=== PATIENT | female | born 1995 | race African-American/Black ===

== ENCOUNTER 2017-01-14 21:58 | Emergency (ER) | payer OTHER, MEDICAID ==
[~2017-01-14] VITALS: Ht 162.6 cm; Wt 47.6 kg
[~2017-01-14 21:58] MED LIST: INSLANTI SC; INSUINJ37 SUBCUT; NOVALOG
[2017-01-14 22:55] LABS: Urine Bilirubin Negative (Negative); Urine Blood Negative /uL (Negative); Urine Color Yellow (Yellow); Urine Nitrite Negative (Negative); Urine RBC 1 /hpf (0 - 4); Urine Squamous Epithelial Cell FEW /hpf (<5); Urine Urobilinogen Normal (Negative); Urine pH 5.5 (5.0-8.0)
[2017-01-14 22:56] LABS: Urine Glucose 4+ mg/dL (Normal); Urine Ketone 1+ (Negative)
[2017-01-14 23:00] LABS: Basophils # (auto) 0 uL; Basophils % (auto) 0.3 % (0.0-2.0); DEFINITIVE VIEW TRANSMISSION; Eosinophils # (auto) 0 uL; Eosinophils % (auto) 0.1 % (0.0-7.0); Hematocrit 40.7 % (36.0-46.0); Hemoglobin 13.1 g/dL (12.2-16.2); Lymphocytes # (auto) 2.5 uL; Lymphocytes % (auto) 16.6 % (10.0-50.0); Mean Corpuscular Hemoglobin 26.8 pg (28.0-32.0); Mean Corpuscular Hgb Conc. 32.3 g/dL (32.0-36.0); Mean Corpuscular Volume 82.9 fL (80.0-100.0); Mean Platelet Volume 8.1 fL (7.4-10.4); Monocytes # (auto) 0.9 uL; Neutrophils # (auto) 11.6 uL; Platelet Count (auto) 339 10^3/uL (140-450); Red Cell Distribution Width 14.3 % (11.6-16.0); White Blood Cell 15.1 10^3/uL (4.4-10.8)
[2017-01-14 23:25] LABS: Albumin 3.7 g/dL (3.4-5.0); Anion Gap 14 (5-15); Aspartate Aminotransferase 12 U/L (15-37); BUN/Creatinine Ratio 8.4; Blood Urea Nitrogen 9 mg/dL (7-18); Calcium 8.3 mg/dL (8.5-10.1); Carbon Dioxide 23 mmol/L (21-32); Chloride 99 mmol/L (98-107); GFR African American 85 mL/min; GFR Non-African American 70 mL/min; Potassium 3.6 mmol/L (3.5-5.1); Salicylate < 1.7 mg/dL (2.8-20.0); Sodium 136 mmol/L (136-145)
[2017-01-14 23:27] LABS: Alkaline Phosphatase 133 U/L (45-117); Bilirubin, Total 0.4 mg/dL (0.2-1.0); Total Protein 8.1 g/dL (6.4-8.2)
[2017-01-14 23:32] LABS: Acetaminophen < 2.0 ug/mL (10-30)
[2017-01-14 23:34] LABS: Glucose 418 mg/dL (74-106)
[2017-01-15] MEDS ORDERED: InsuLIN REG 1unit/0.01ml Soln (100units/ml) SC ONE (01:15)
[2017-01-15 02:17] VITALS: BP 110/78
== END 2017-01-15 02:18 | disposition home or self-care (01) ==
LOC: ER 22:07
DX: F32.9 Major depressive disorder, single episode, unspecified (principal); E10.9 Type 1 diabetes mellitus without complications; F41.9 Anxiety disorder, unspecified
CPT/HCPCS: 36415; 80053; 80320; 80329; 81001; 81025; 82010; 82962; 85025; 96372; 99284; G0434; J1815

== ENCOUNTER 2018-10-19 20:57 | Inpatient (IN) | payer MEDICAID ==
[~2018-10-19] VITALS: Ht 160 cm; Wt 57.3 kg
[2018-10-19 21:57] LABS: Basophils # (auto) 0 uL; Eosinophils # (auto) 0 uL; Lymphocytes # (auto) 1.7 uL
[2018-10-19 21:58] LABS: Urine Bacteria NONE SEEN /hpf (None Seen); Urine Blood Negative /uL (Negative); Urine Specific Gravity 1.037 (1.001-1.035); Urine WBC 5 /hpf (0 - 5)
[2018-10-19 21:59] LABS: Basophils % (auto) 0.2 % (0.0-2.0); Hematocrit 40.8 % (36.0-46.0); Hemoglobin 13.2 g/dL (12.2-16.2); Mean Corpuscular Hemoglobin 26.5 pg (28.0-32.0); Mean Corpuscular Hgb Conc. 32.3 g/dL (32.0-36.0); Mean Corpuscular Volume 82.1 fL (80.0-100.0); Monocytes # (auto) 0.5 uL; Monocytes % (auto) 4.4 % (0.0-12.0); Neutrophils % (auto) 80.4 % (37.0-80.0); Platelet Count (auto) 290 10^3/uL (140-450); Red Blood Cells 4.97 10^6/uL (4.0-5.20); Red Cell Distribution Width 14.6 % (11.8-14.3); White Blood Cell 11.2 10^3/uL (4.4-10.8)
[2018-10-19 22:01] LABS: Alcohol, Urine < 3.0 mg/dL (0-5); Amphetamine Screen, Urine NEGATIVE (NEGATIVE); Barbiturate Scree,Urine NEGATIVE (NEGATIVE); Benzodiazephine Screen, Urine NEGATIVE (NEGATIVE); Cannabinoid Screen, Urine NEGATIVE (NEGATIVE); Cocaine Screen, Urine NEGATIVE (NEGATIVE); Opiate Scree,Urine NEGATIVE (NEGATIVE); Phencyclidine Screen, Urine NEGATIVE (NEGATIVE)
[2018-10-19 22:13] LABS: Urine Pregnacy Test Negative (Negative)
[2018-10-19 22:17] LABS: Albumin 3.9 g/dL (3.4-5.0); Anion Gap 7 (5-15); Blood Urea Nitrogen 6 mg/dL (7-18); Carbon Dioxide 23 mmol/L (21-32); Chloride 104 mmol/L (98-107); Glucose 287 mg/dL (74-106); Potassium 4.1 mmol/L (3.5-5.1); Sodium 134 mmol/L (136-145)
[2018-10-19 22:22] LABS: Alanine Aminotransferase 13 U/L (13-56); Alkaline Phosphatase 114 U/L (45-117); Aspartate Aminotransferase 11 U/L (15-37); Bilirubin, Total 0.5 mg/dL (0.2-1.0); GFR African American 107 mL/min; GFR Non-African American 89 mL/min; Total Protein 8.4 g/dL (6.4-8.2)
[2018-10-19] MEDS ORDERED: SODIUM CHLORIDE 0.9% 2,000 ML IV ONE (22:30)
[2018-10-19] MEDS ORDERED: InsuLIN REG 1unit/0.01ml Soln (100units/ml) IV ONE (22:45)
[2018-10-20] MEDS ORDERED: DEXTROSE 50% SYRINGE 50 ML IV ONE ×2 (00:12→01:35)
[2018-10-20] MEDS ORDERED: DEXTROSE (50%) 50ML SYRG IV ONE ×2 (00:30→02:15)
[2018-10-20] MEDS ORDERED: D5W/SOD CHL 0.45% 1,000 ML IV ONE (02:15)
[2018-10-20] MEDS: ACCU-CHEK COMFORT CURVE STRIP VI SCH ×8 (03:00→20:00)
[2018-10-20] MEDS ORDERED: ACETAMINOPHEN 500 MG TAB PO PRN (03:00)
[2018-10-20] MEDS ORDERED: DEXTROSE (50%) 50ML SYRG IV PRN (03:00)
[2018-10-20] MEDS ORDERED: ONDANSETRON HCL 4 MG/2 ML VIAL IV PRN (03:00)
[2018-10-20 05:00] VITALS: BP 108/64
[2018-10-20] MEDS ORDERED: INFLUENZA QUAD 2018-2019 0.5 ML SYRG IM ONE (07:30)
[2018-10-20 08:57] LABS: Basophils # (auto) 0 uL; Eosinophils # (auto) 0 uL; Lymphocytes # (auto) 3.5 uL; Lymphocytes % (auto) 40.4 % (10.0-50.0); Monocytes # (auto) 0.6 uL; Neutrophils # (auto) 4.5 uL; Nucleated Red Blood Cells % 0.1 %; White Blood Cell 8.7 10^3/uL (4.4-10.8)
[2018-10-20 09:00] LABS: Basophils % (auto) 0.3 % (0.0-2.0); Eosinophils % (auto) 0.2 % (0.0-7.0); Hematocrit 36.2 % (36.0-46.0); Hemoglobin 11.7 g/dL (12.2-16.2); Mean Corpuscular Hemoglobin 26.7 pg (28.0-32.0); Mean Corpuscular Hgb Conc. 32.3 g/dL (32.0-36.0); Mean Corpuscular Volume 82.7 fL (80.0-100.0); Monocytes % (auto) 7.1 % (0.0-12.0); Platelet Count (auto) 251 10^3/uL (140-450); Red Blood Cells 4.37 10^6/uL (4.0-5.20); Red Cell Distribution Width 14.6 % (11.8-14.3)
[2018-10-20 09:04] LABS: BUN/Creatinine Ratio 5.2; Calcium 7.9 mg/dL (8.5-10.1); Potassium 3.3 mmol/L (3.5-5.1)
[2018-10-20 09:06] VITALS: BP 113/56
[2018-10-20 13:00] VITALS: BP 112/65
[2018-10-20] MEDS ORDERED: POTASSIUM CHL 20 Meq TABLET PO ONE (13:00)
[2018-10-20 17:00] VITALS: BP 114/72
[2018-10-20 22:00] VITALS: BP 108/65
[2018-10-21] MEDS ORDERED: DEXTROSE (50%) 50ML SYRG IV PRN (00:45)
[2018-10-21] MEDS: InsuLIN REG 1unit/0.01ml Soln (100units/ml) SC SCH ×4 (01:30→17:00)
[2018-10-21] MEDS: ACCU-CHEK COMFORT CURVE STRIP VI SCH ×6 (01:30→17:00)
[2018-10-21 05:00] VITALS: BP 88/57
[2018-10-21] MEDS ORDERED: InsuLIN REG 1unit/0.01ml Soln (100units/ml) SC SCH (07:00)
[2018-10-21 09:00] VITALS: BP_SYST 112; BP_SYST 114; BP_DIAS 59; BP_DIAS 60
[2018-10-21] MEDS ORDERED: INSULIN LANTUS (GLARGINE) 1 /0.01ml (100units/ml) SC ONE (10:45)
[2018-10-21 13:00] VITALS: BP 146/81
[2018-10-21 16:20] VITALS: BP 146/81
[2018-10-21 17:00] VITALS: BP 101/63
[2018-10-22] MEDS ORDERED: INSULIN LANTUS (GLARGINE) 1 /0.01ml (100units/ml) SC SCH (07:00)
== END 2018-10-21 17:35 | disposition home or self-care (01) | DRG 420 ==
LOC: ER 20:57 → OVERFLOW 10-20 04:23 → EAST 10-20 04:50
PROVIDERS: ADMIT Nurse Practitioner Family; ATTEND Internal Medicine
DX: E11.10 Type 2 diabetes mellitus with ketoacidosis without coma (principal); E11.65 Type 2 diabetes mellitus with hyperglycemia; E11.649 Type 2 diabetes mellitus with hypoglycemia without coma; E87.6 Hypokalemia; D72.829 Elevated white blood cell count, unspecified; E86.0 Dehydration; Z83.3 Family history of diabetes mellitus; Z79.4 Long term (current) use of insulin; Z88.0 Allergy status to penicillin; Z91.19 Patient's noncompliance with other medical treatment and regimen
CPT/HCPCS: 36415; 36600; 80048; 80053; 80307; 81001; 81025; 82010; 82805; 82962; 83036; 84484; 85025; 90674; 96361; 96374; 96375; 96376; G0378; J1815